=== PATIENT | male | born 1955 | race African-American/Black ===

== ENCOUNTER 2017-08-18 19:44 | Emergency (ER) | payer BC, MEDICARE, OTHER ==
[~2017-08-18] VITALS: Ht 180.3 cm; Wt 82.0 kg
[2017-08-18] MEDS ORDERED: SODIUM CHLORIDE 0.9% 1,000 ML IV ONE (23:56)
[2017-08-19 00:20] LABS: BASOPHILS % 0.6 % (0.0-2.0); EOSINOPHILS % 3.8 % (0.0-5.0); HEMATOCRIT. 42.4 % (42.0-52.0); HEMOGLOBIN. 14.9 g/dL (14.0-18.0); LYMPHOCYTES % 31.9 % (20.0-50.0); MEAN CORPUSCULAR HEMOGLOBIN 32.5 pg (28.0-32.0); MEAN CORPUSCULAR VOLUME 92.5 fL (80.0-94.0); MEAN PLATELET VOLUME 8.4 fl (7.4-10.4); MONOCYTES % 9.1 % (2.0-8.0); NEUTROPHILS % 54.6 % (40.0-76.0); PLATELET 280 x1000/uL (130-400); RED BLOOD CELL COUNT 4.58 mill/uL (4.7-6.1)
[2017-08-19 00:25] LABS: CHLORIDE 104 mEq/L (98-107)
[2017-08-19 00:34] LABS: CARBON DIOXIDE 27 mEq/L (21-32)
[2017-08-19 05:18] VITALS: BP 131/82
== END 2017-08-19 05:26 | disposition home or self-care (01) ==
LOC: ER 20:29
DX: R51 Headache (principal); R42 Dizziness and giddiness; R61 Generalized hyperhidrosis; J00 Acute nasopharyngitis [common cold]; I10 Essential (primary) hypertension; F12.10 Cannabis abuse, uncomplicated; Z91.018 Allergy to other foods
CPT/HCPCS: 36415; 70450; 71010; 80053; 83605; 85025; 87040; 93005; 96360; 96361; 99285; J7030; Z7610

== ENCOUNTER → 2021-03-03 | Outpatient (CLI) | payer BC | END | disposition home or self-care (01) | LOC: LAB 09:43 | PROVIDERS: ATTEND Internal Medicine Pulmonary Disease | DX: Z20.822 Contact with and (suspected) exposure to COVID-19 (principal); E79.0 Hyperuricemia without signs of inflammatory arthritis and tophaceous disease; Z86.16 Personal history of COVID-19 | CPT/HCPCS: 87426 ==